=== PATIENT | male | born 1970 | race Caucasian/White ===

== ENCOUNTER 2021-08-11 21:36 | Emergency (ER) | payer OTHER ==
[2021-08-11 22:21] LABS: HEMOGLOBIN 16.8 gm/dl (14.0-17.5); RED BLOOD COUNT 5.36 M/UL (4.20-5.50); WHITE BLOOD COUNT 17.2 K/UL (4.5-11.0)
[2021-08-11 22:43] LABS: BUN/CREATININE RATIO 12 (0-10)
[2021-08-12] MEDS ORDERED: AZITHROMYCIN250 MG PO (00:44)
[2021-08-12] MEDS ORDERED: OMNICEF 300 MG300 MG PO (00:44)
== END 2021-08-12 00:55 | disposition home or self-care (01) ==
LOC: ER1 21:36
PROVIDERS: Family Medicine
DX: J18.9 Pneumonia, unspecified organism (principal); I10 Essential (primary) hypertension; F17.200 Nicotine dependence, unspecified, uncomplicated; Z20.822 Contact with and (suspected) exposure to COVID-19
CPT/HCPCS: 71045; 80053; 81001; 82550; 82553; 83605; 83874; 84484; 85025; 87040; 93005; 96374; 99284; J0696; U0002